=== PATIENT | female | born 2000 | race African-American/Black ===

== ENCOUNTER 2020-11-25 07:59 | Emergency (ER) | payer OTHER ==
[~2020-11-25] VITALS: Ht 149.9 cm; Wt 57.1 kg
[2020-11-25 08:22] LABS: URINE BILIRUBIN NEGATIVE (Negative); URINE BLOOD 1+ (Negative); URINE CLARITY CLEAR; URINE COLOR YELLOW; URINE GLUCOSE-RANDOM* NEGATIVE (Negative); URINE KETONES NEGATIVE (Negative); URINE LEUKOCYTES-REFLEX NEGATIVE (Negative); URINE NITRITE-REFLEX NEGATIVE (Negative); URINE PROTEIN (DIPSTICK) NEGATIVE (Negative); URINE SPECIFIC GRAVITY >= 1.030 (1.005-1.035); URINE UROBILINOGEN 0.2 E.U./dl (0.2-1.0)
[2020-11-25 08:31] LABS: MUCUS >6 Heavy strn/LPF (None Seen); SQUAMOUS >10 Many /LPF (0-3)
[2020-11-25 08:32] LABS: CASTS None Seen /LPF (None Seen)
[2020-11-25 08:34] LABS: BACTERIA-REFLEX 1-9 Few /HPF (None Seen); CRYSTALS None Seen /LPF (None Seen); URINE RBC 1-2 Rare /HPF (NONE SEEN); URINE WBC-REFLEX 0-5 Rare /HPF (0-5)
[2020-11-25 09:36] VITALS: BP 120/70
== END 2020-11-25 09:32 | disposition home or self-care (01) ==
LOC: ER 07:59
PROVIDERS: Emergency Medicine
DX: R51.9 Headache, unspecified (principal); F12.90 Cannabis use, unspecified, uncomplicated